=== PATIENT | male | born 1965 | race American Indian/Alaskan Native ===

== ENCOUNTER 2017-04-14 19:09 | Inpatient (IN) | payer OTHER ==
[2017-04-14 20:38] LABS: Anion Gap 18 mmol/L; BUN/Creatinine Ratio 14.11; Blood Urea Nitrogen 24 mg/dL (9-20); Calcium 8.9 mg/dL (8.4-10.2); Carbon Dioxide 25 mmol/L (22-30); Chloride 95.2 mmol/L (98-107); Glucose 125 mg/dL (75-100); Potassium 3.3 mmol/L (3.6-5.0); Sodium 135 mmol/L (137-145)
[2017-04-14 20:39] LABS: Partial Thromboplastin Time 28.3 Sec. (24.2-36.6)
[2017-04-14 20:47] LABS: Basophils % (Auto) 1.1 % (0.0-1.8); Eosinophils % (Auto) 2.7 % (0.0-4.3); Hemoglobin 14.5 gm/dl (11.8-15.2); Mean Corpuscular HGB Conc 33 % (32-34); Mean Corpuscular Hemoglobin 28 pg (28-32); Mean Corpuscular Volume 84 fl (84-94); Platelet Count 206 K/mm3 (140-440); Red Blood Count 5.24 M/mm3 (3.65-5.03); Red Cell Distribution Width 15.1 % (13.2-15.2)
--- NOTE | 2017-04-15 07:47 | Emergency Department Report ---
ED Chest Pain HPI - General Chief Complaint: Chest Pain Stated Complaint: CHEST PAIN, BACK PAIN, LT ARM PAIN Time Seen by Provider: 04/15/17 07:23 Source: patient, old records reviewed (none available) Mode of arrival: Ambulatory Limitations: No Limitations - History of Present Illness Initial Comments: 52-year-old male with a past medical history of renal insufficiency, hypertension, and CHF presents complaining of left-sided chest pain 2 days. Pain is intermittent and described as a "discomfort", no aggravating or alleviating factors. Pain radiates to the left arm and back. Denies nausea, vomiting, diaphoresis, shortness of breath, recent travel, calf tenderness/edema , history of PE/DVT. The patient denies tobacco use. Reports negative stress test 4 years ago as well as unknown but patient has not received a cardiac cath. He denies history of stent or bypass surgery. Patient takes 81 mg aspirin daily does not take cholesterol medication. Denies cough and fever. 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 Severity scale (0 -10): 0 - Related Data Allergies Allergy/AdvReac Type Severity Reaction Status Date / Time No Known Allergies Allergy Verified 04/14/17 19:36 Heart Score - HEART Score History: Slightly suspicious EKG: Non-specific Age: 45-65 Risk factors: > 3 risk factors or hx of atherosclerotic disease Troponin: < normal limit HEART Score: 4 ED Review of Systems ROS: Stated complaint: CHEST PAIN, BACK PAIN, LT ARM PAIN Other details as noted in HPI Comment: All other systems reviewed and negative Other: Constitutional: No fevers chills Eyes: No eye pain visual changes ENT: No ear pain or throat pain Neck: Denies pain Respiratory: Denies cough wheezing shortness of breath Cardiovascular: Denies palpitations, syncope GI: Denies abdominal pain, nausea, vomiting, diarrhea : Denies dysuria Musculoskeletal: as per hpi Skin: Denies rash, lesions, erythema Neurologic: Denies headache, numbness, weakness Psychiatric: Denies suicidal ideation, hallucinations ED Past Medical Hx - Past Medical History Previous Medical History?: Yes Hx Hypertension: Yes Hx Congestive Heart Failure: Yes Hx Renal Disease: Yes (renal insuf) - Surgical History Past Surgical History?: No - Social History Smoking Status: Never Smoker Substance Use Type: None ED Physical Exam - General Limitations: No Limitations - Other Other exam information: General: No limitations, patient is alert in no acute distress Head exam: Atraumatic, normocephalic Eyes exam: Normal appearance ENT: Moist mucous membrane, normal oropharynx Neck exam: Normal inspection, full range of motion, no meningismus nontender Respiratory exam: Clear to auscultation bilateral, no wheezes, rales, crackles Cardiovascular: Normal rate and rhythm, normal heart sounds. Chest wall nontender Abdomen: Soft, nondistended, and nontender, with normal bowel sounds, no rebound, or guarding Extremity: Full range of motion normal inspection no deformity, no calf tenderness or edema Back: Normal Inspection, full range of motion, no tenderness Neurologic: Alert, oriented x3, cranial nerves intact, no motor or sensory deficit Psychiatric: normal affect, normal mood Skin: Warm, dry, intact ED Course Vital Signs 04/14/17 04/14/17 04/15/17 19:21 19:36 06:03 Temperature 98.9 F 98.9 F Pulse Rate 78 78 60 Respiratory 18 18 18 Rate Blood Pressure 173/106 173/106 O2 Sat by Pulse 98 98 Oximetry 04/15/17 04/15/17 06:06 07:01 Temperature Pulse Rate 56 L 57 L Respiratory 12 14 Rate Blood Pressure 139/73 O2 Sat by Pulse 100 Oximetry ED Medical Decision Making - Lab Data Result diagrams: 04/14/17 19:53 04/14/17 19:53 Lab Results 04/14/17 04/14/17 04/14/17 Range/Units 19:53 19:53 19:53 WBC 5.0 (4.5-11.0) K/mm3 RBC 5.24 H (3.65-5.03) M/mm3 Hgb 14.5 (11.8-15.2) gm/dl Hct 44.0 (35.5-45.6) % MCV 84 (84-94) fl MCH 28 (28-32) pg MCHC 33 (32-34) % RDW 15.1 (13.2-15.2) % Plt Count 206 (140-440) K/mm3 Lymph % (Auto) 35.5 H (13.4-35.0) % [place] % (Auto) 10.2 H (0.0-7.3) % Eos % (Auto) 2.7 (0.0-4.3) % Baso % (Auto) 1.1 (0.0-1.8) % Lymph # 1.8 (1.2-5.4) K/mm3 [place] # 0.5 (0.0-0.8) K/mm3 Eos # 0.1 (0.0-0.4) K/mm3 Baso # 0.1 (0.0-0.1) K/mm3 Seg Neutrophils % 50.5 (40.0-70.0) % Seg Neutrophils # 2.5 (1.8-7.7) K/mm3 PT 13.1 (12.2-14.9) Sec. INR 1.00 (0.87-1.13) APTT 28.3 (24.2-36.6) Sec. Sodium 135 L (137-145) mmol/L Potassium 3.3 L (3.6-5.0) mmol/L Chloride 95.2 L (98-107) mmol/L Carbon Dioxide 25 (22-30) mmol/L Anion Gap 18 mmol/L BUN 24 H (9-20) mg/dL Creatinine 1.7 H (0.8-1.5) mg/dL Estimated GFR 52 ml/min BUN/Creatinine Ratio 14.11 % Glucose 125 H (75-100) mg/dL Calcium 8.9 (8.4-10.2) mg/dL Troponin T < 0.010 (0.00-0.029) ng/mL 04/14/17 Range/Units 23:14 WBC (4.5-11.0) K/mm3 RBC (3.65-5.03) M/mm3 Hgb (11.8-15.2) gm/dl Hct (35.5-45.6) % MCV (84-94) fl MCH (28-32) pg MCHC (32-34) % RDW (13.2-15.2) % Plt Count (140-440) K/mm3 Lymph % (Auto) (13.4-35.0) % [place] % (Auto) (0.0-7.3) % Eos % (Auto) (0.0-4.3) % Baso % (Auto) (0.0-1.8) % Lymph # (1.2-5.4) K/mm3 [place] # (0.0-0.8) K/mm3 Eos # (0.0-0.4) K/mm3 Baso # (0.0-0.1) K/mm3 Seg Neutrophils % (40.0-70.0) % Seg Neutrophils # (1.8-7.7) K/mm3 PT (12.2-14.9) Sec. INR (0.87-1.13) APTT (24.2-36.6) Sec. Sodium (137-145) mmol/L Potassium (3.6-5.0) mmol/L Chloride (98-107) mmol/L Carbon Dioxide (22-30) mmol/L Anion Gap mmol/L BUN (9-20) mg/dL Creatinine (0.8-1.5) mg/dL Estimated GFR ml/min BUN/Creatinine Ratio % Glucose (75-100) mg/dL Calcium (8.4-10.2) mg/dL Troponin T < 0.010 (0.00-0.029) ng/mL - EKG Data -: EKG Interpreted by Me (nsr 70, nonspecific t wave abnl, prolonged qt, 1st av block) - EKG Data When compared to previous EKG there are: previous EKG unavailable 04/15/17 08:04 repeat ekg no change - Radiology Data Radiology results: image reviewed (cxr: naf) - Medical Decision Making cp: declined meds, enzymes negative 2, EKG without STEMI Mag pending (prolong qt). asa ordered Plan to admit for further cardiac evaluation as been ordered. Hypertension: resolved without medication Hypokalemia: Po Kcl 20 meq given - Differential Diagnosis HI, costochondritis, atypical pain, unstable angina Critical Care Time: No Critical care attestation.: If time is entered above; I have spent that time in minutes in the direct care of this critically ill patient, excluding procedure time. ED Disposition Clinical Impression: Chest pain, HTN (hypertension), Obesity, History of CHF (congestive heart failure), Renal insufficiency Disposition: OP ADMIT IP TO THIS HOSP Is pt being admited?: Yes Does the pt Need Aspirin: Yes Condition: Stable Time of Disposition: 07:57 ([place]/hosp)
[2017-04-15] MEDS ORDERED: ASPIRIN PO ONE (07:58)
[2017-04-15] MEDS ORDERED: K-DUR PO ONE (08:01)
--- NOTE | 2017-04-15 08:18 | XRay Report ---
AP CHEST: HISTORY: chest pain Heart size remains borderline which is unchanged since 11/20/12. Normal pulmonary vascularity. The lungs are clear. Normal bony structures. IMPRESSION: Borderline heart size. Lungs clear. No acute process noted.
--- NOTE | 2017-04-15 09:27 | Admit Criteria Form ---
Admission Criteria Documentation: CARDIOLOGY GRG Clinical Indications for Admission to Inpatient Care ([place]/check or initial the applicable condition/criteria) Hospital admission is needed for appropriate care of the patient because of ANY ONE of the following: [ ] I. Hemodynamic instability as indicated by ALL of the following (1)(2)(3) (4)(5)(6)(7)(8)(9)(10) [ ]a) Vital sign abnormality not readily corrected by appropriate treatment with 12-24 hours for ANY ONE: [ ]i) Hypotension that persists despite appropriate treatment (eg, volume repletion) [ ]ii) Tachycardiathat persists despite appropriate tx ( e.g., analgesia, fluids, sedation as indicated [ ]iii) Orthostatic vital sign changes that persists despite appropriate treatment (eg, volume repletion) [ ]b) Vital sign abnormailty that is severe indicated by ANY ONE of the following: [ ]i) Inadequate perfusion indicated by ANY ONE of the following: [ ] 1) Lactic acidosis (> 2 mmol/L) [ ] 2) New abnormal capillary refill (> 3 seconds) [ ] 3) Reduced urine output [ ] 4) New altered mental status [ ] 5) Myocardial Ischemia [ ] 6) Other metabolic acidosis (arterial pH <7.35 ) not otherwise explained. [ ]ii) Mean arterial pressure[A] less than 60 mm Hg [ ]iii) Mean arterial pressure[A] less than 70 mm Hg after 30 minutes of appropriate treatment (eg, fluid resuscitation) [ ]iv) Sustained heart rate greater than 120 beats per minute in adult or child 6 years or older[B] [ ]v) IV inotropic or vasopressor medication required to maintain adequate blood pressure or perfusion [ ] II. Severe heart failure as indicated by ANY ONE of the following(17)(18) [ ]a) Respiratory distress [ ]b) Hypotension [ ]c) Debilitating anasarca refractory to therapy (eg, tissue breakdown with infection)[C](19) [ ]d) Cardiac arrhythmias of immediate concern [ ]e) Myocardial ischemia [ ] III. Cardiac arrhythmias or findings of immediate concern indicated by ANY ONE of the following (21)(22): [ ] a) Heart rhythms that are inherently dangerous or unstable indicated by ANY ONE of the following (23)(24)(25): [ ] i) Resuscitated ventricular fibrillation or cardiac arrest [ ] ii) Ventricular escape rhythm [ ] iii) Sustained ventricular tachycardia (30 seconds or more of ventricular rhythm at greater than 100 beats per minute) [ ] iv) Nonsustained ventricular tachycardia and ANY ONE of the following: [ ] 1) Suspected cardiac ischemia as cause or consequence of ventricular tachycardia [ ] 2) Acute myocarditis [ ] b) Unstable cardiac conduction defects indicated by ANY ONE of the following(25)(26)(27) [ ] i) Type II second-degree atrioventricular block [ ]ii) Third-degree atrioventricular block [ ]iii) New-onset left bundle branch block with suspected myocardial ischemia [ ]c) Any heart rhythm and ANY ONE of the following (23)(24)(28)(29) (30) [ ] i) Continuous long-term ECG monitoring needed (e.g., initiation of drug requiring monitoring for more than 24 hours) [ ] ii) Patient has automatic implanted cardioverter defibrillator that is repeatedly firing, malfunctioning, or in need of immediate adjustment of settings beyond the scope of ambulatory or observation care [ ]d) Heart rhythms of concern due to ANY ONE of the following: [ ] i) Hypotension [ ] ii) Respiratory distress [ ] iii) Association with other significant symptoms (e.g., bradycardia with syncope or ongoing dizziness, supraventricular tachycardia with chest pain (28)(29)(31) [ ] IV. Monitoring for cardiac contusion beyond the scope of observation care needed [A](32)(33)(34) [ ] V. Surgical or device complication (e.g., valve replacement complication , ICD disfunction or pacemaker dysfunction) (49)(50)(51)(52)(53)(54) [ ] . Inpatient palliative care needed. [F](51)(52) Also use Inpatient Palliative Care Criteria [ ] VII. Nonbacterial thrombotic (marantic) endocarditis(43)(44)(55)(56)(57) [X ] VIII. Cardiology condition, symptom, or finding for which emergency and observation care has failed or are not considered appropriate. [ ] IX. Acute valvular disease requiring inpatient as indicated by ANY ONE of the following (40)(41) [ ]a) Acute valvular regurgitation (42) [ ]b) Noninfectious valvulitis (43)(44) [ ]c) Obstructive valve thrombosis (45)(46) [ ]d) Paravalvular leak(47)(48) [ ]e) Other significant valvular disorder remaining after emergency or observation level of care (as appropriate) [ ]X. Pericardial disease requiring inpatient treatment as indicated by ANY ONE of the following (35)(36)(37)(38) [ ]a) Suspected tamponade [ ]b) Hemopericardium [ ]c) Other significant pericardial disorder remaining after emergency or observation level of care (as appropriate)(39) [ ] XI. Cardiac ischemia beyond scope of emergency and observation care. [ ] XII. Cyanotic heart disease requiring inpatient care as indicated by 1 or more of the following(58)(59)(60): [ ]a) Acute onset of hypoxemia [ ]b) Exacerbation [ ] XIII. Hypertension requiring inpatient treatment as indicated by ANYONE of the following(11)(12)(13)(14): [ ]a) Severe hypertension (SBP greater than 180 mm Hg or DBP greater than 110 mm Hg, or greater than the 95th percentile for age, gender, and height in pediatric patients) that cannot be controlled (eg, to SBP less than 160 mm Hg and DBP less than 100 mm Hg) by emergency department or observation care treatment(15) [ ]b) Acute end organ damage secondary to hypertension (SBP greater than 140 mm Hg or DBP greater than 90 mm Hg) as indicated by ANYONE of the following: [ ] i) Hypertensive encephalopathy (eg, Altered mental status)(16) [ ] ii) Cerebral infarction [ ] iii) Intracranial hemorrhage [ ] iv) Myocardial ischemia or infarction [ ] v) Heart failure (eg, pulmonary edema) [ ] vi) Aortic dissection [ ] vii) Increased creatinine (new) with reduction of more than 50% in estimated glomerular filtration rate from baseline [ ] viii) Papilledema [ ] ix) Retinal hemorrhage [ ] x) Microangiopathic hemolytic anemia [ ] xi) Seizure [ ] xii) Other significant finding secondary to hypertension [ ] XIV. Complications of transplanted heart indicated by ANY ONE of the following(61): [ ]a) Acute graft rejection requiring inpatient management (eg, intravenous imunosuppression)(62)(63) [ ]b) Acute graft heart failure indicated by ANY ONE of the following(64): [ ] i) Hemodynamic instability [ ] ii) Cardiac arrhythmias of immediate concern [ ] iii) Pulmonary edema that is very severe (eg, mechanical ventilation needed, imminent or likely, need for 100% oxygen to keep oxygen saturation above 90%) [ ] iv) Pulmonary edema that is persistent as indicated by ALL of the following: [ ] 1) New need for oxygen therapy to keep oxygen saturation above 90 % (or increased FiO2 need from baseline) [ ] 2) Has not improved sufficiently with emergency department or observation care IV diuretics or other heart failure treatments[E]. [ ] iv) Altered mental status that is severe or persistent [ ] iv) Increased creatinine (new on laboratory test) with reduction of more than 50% in estimated glomerular filtration rate from baseline [ ] iv) Progressively (ongoing) rising creatinine (known from past laboratory test) with reduction of more than 25% in estimated glomerular filtration rate from baseline [ ] iv) Acute renal failure [ ] iv) Acute peripheral ischemia (eg, examination shows pulseless, cool, mottled, or cyanotic extremity) [ ] iv) Pulmonary artery catheter monitoring needed [ ] iv) Other sign or symptom of heart failure requiring inpatient treatment (ie, too severe or not responsive to outpatient and observation care treatment) [ ]c) Infection requiring inpatient management (eg, Hemodynamic instability, need for intravenous antimicrobial treatment)(66)(67)(68)(69)(70) [ ]d) Cardiac allograft vasculopathy requiring inpatient management (eg evidence of cardiacischemia)(71) [ ]e) Other complication of transplanted heart (eg, stroke, severe pulmonary hypertension, severe valvular dysfunction) requiring inpatient management(72) The original [employer] content created by [employer] has been revised. The portions of the content which have been revised are identified through the use of italic text or in bold, and [facility] has neither reviewed nor approved the modified material. All other unmodified content is copyright [facility]. Please see references footnoted in the original [facility] edition 2017 Admission Criteria Met: Yes
[2017-04-15] MEDS ORDERED: NON-FORMULARY (Hydralazine Hcl [Apresoline Tab] 50 MG) PO SCH (10:00)
[2017-04-15] MEDS ORDERED: DULCOLAX PR PRN (10:00)
[2017-04-15] MEDS ORDERED: TYLENOL PO PRN (10:30)
[2017-04-15] MEDS ORDERED: MILK OF MAGNESIA PO PRN (10:30)
[2017-04-15] MEDS ORDERED: ZOFRAN IV PRN (10:30)
[2017-04-15] MEDS ORDERED: APRESOLINE IV PRN (10:30)
[2017-04-15] MEDS: ASPIRIN PO SCH (10:49)
[2017-04-15] MEDS ORDERED: NITROSTAT SL PRN (11:00)
[2017-04-15] MEDS ORDERED: LOVENOX SUB-Q ONE (11:01)
[2017-04-15] MEDS: LOVENOX SUB-Q SCH (11:02)
[2017-04-15] MEDS: LOPRESSOR PO SCH ×2 (11:04→22:09)
[2017-04-15] MEDS: NORVASC PO SCH (11:04)
[2017-04-15] MEDS: APRESOLINE PO SCH ×2 (11:04→22:09)
[2017-04-15] MEDS: HCTZ PO SCH (11:04)
--- NOTE | 2017-04-15 12:05 | History and Physical Report ---
<MELISA SCRUGGS - Last Filed: 04/15/17 18:24> History of Present Illness Date of examination: 04/15/19 Date of admission: 04/15/17 08:54 Chief complaint: Chest pain History of present illness: Patient is a 52 years old black male who presents to emergency department for complaining of left sided chest pain. He states that the pain began two-three days ago intermittent left side chest pain, but his pain increase in intensity this morning. The pain was located over to his left side of his chest. He noticed the pain this morning as he was getting out of bed and while the patient was walking to the bath room. He describes the quality as discomfort without radiation to the shoulder, arm, back, or jaw. The pain lasted approximately around 1-2 seconds minutes. The patient did not take anything to relief the pain prior to emergency department. No alleviating or aggravating factors. The painful episodes did not increase in intensity or severity during this time. The patient denies chest pain at present time. He denies shortness of breath, sweating, heart palpitations, lightheadedness, dizziness, nausea and vomiting during these episodes of pain. Patient do not have prior chest pain or cardiac work up. Past History Past Medical History: heart failure, hypertension, other (renal ) Past Surgical History: cholecystectomy Social history: denies: smoking, alcohol abuse Family history: CAD, hypertension Medications and Allergies Allergies Allergy/AdvReac Type Severity Reaction Status Date / Time No Known Allergies Allergy Verified 04/14/17 19:36 Home Medications Medication Instructions Recorded Confirmed Last Taken Type Hydralazine HCl [Apresoline TAB] 50 mg PO BID 04/15/17 04/15/17 04/14/17 History Hydrochlorothiazide [HCTZ] 25 mg PO QDAY 04/15/17 04/15/17 04/14/17 History Metoprolol [Lopressor TAB] 50 mg PO BID 04/15/17 04/15/17 04/14/17 History amLODIPine [Norvasc] 10 mg PO DAILY 04/15/17 04/15/17 04/14/17 History cloNIDine [Catapres] 0.2 mg PO TID 04/15/17 04/15/17 04/14/17 History Active Meds: Active Medications Acetaminophen (Tylenol) 650 mg PO Q4H PRN PRN Reason: Pain MILD(1-3)/Fever >100.5/BOLIVAR Amlodipine Besylate (Norvasc) 10 mg PO DAILY [facility] Last Admin: 04/15/17 11:04 Dose: 10 mg Aspirin (Aspirin) 325 mg PO QDAY [facility] Last Admin: 04/15/17 10:49 Dose: Not Given Bisacodyl (Dulcolax) 10 mg [place] QDAY PRN PRN Reason: Constipation unrelieved by MOM Clonidine HCl (Catapres) 0.2 mg PO TID [facility] Enoxaparin Sodium (Lovenox) 40 mg SUB-Q DAILY [facility] Last Admin: 04/15/17 11:02 Dose: 40 mg Hydralazine HCl (Apresoline) 20 mg IV Q4H PRN PRN Reason: Blood Pressure Hydralazine HCl (Apresoline) 50 mg PO BID [facility] Last Admin: 04/15/17 11:04 Dose: 50 mg Hydrochlorothiazide (Hctz) 25 mg PO QDAY [facility] Last Admin: 04/15/17 11:04 Dose: 25 mg Magnesium Hydroxide (Milk Of Magnesia) 30 ml PO Q4H PRN PRN Reason: Constipation Metoprolol Tartrate (Lopressor) 50 mg PO BID [facility] Last Admin: 04/15/17 11:04 Dose: 50 mg Nitroglycerin (Nitrostat) 0.4 mg SL .Q5MIN PRN PRN Reason: Chest Pain Ondansetron HCl (Zofran) 4 mg IV Q8H PRN PRN Reason: Nausea And Vomiting Review of Systems Constitutional: no weight loss, no weight gain, no fever, no chills Ears, nose, mouth and throat: no ear discharge, no tinnitis, no decreased hearing, no nose pain, no nasal congestion Cardiovascular: chest pain, dyspnea on exertion, no orthopnea, no palpitations, no rapid/irregular heart beat, no edema Respiratory: no cough with sputum, no excessive sputum, no shortness of breath Gastrointestinal: no diarrhea, no constipation, no change in bowel habits Genitourinary Male: no hematuria, no flank pain, no discharge, no urinary frequency, no urinary hesitancy, no nocturia Rectal: no pain Musculoskeletal: no neck pain, no shooting arm pain, no low back pain Integumentary: no redness, no sores, no jaundice Neurological: no transient paralysis, no paralysis, no weakness, no parathesias Psychiatric: no memory loss, no change in sleep habits Endocrine: no cold intolerance, no polyphagia, no excessive thirst Hematologic/Lymphatic: no easy bruising, no easy bleeding Allergic/Immunologic: no urticaria, no allergic rhinitis Exam - Constitutional Vitals: Temp Pulse Resp BP Pulse Ox 98.9 F 85 16 150/112 98 04/14/17 19:36 04/15/17 11:04 04/15/17 11:01 04/15/17 11:04 04/15/17 11:01 General appearance: Present: no acute distress - EENT Eyes: Present: PERRL ENT: hearing intact - Neck Neck: Present: supple - Respiratory Respiratory effort: normal Respiratory: bilateral: CTA - Cardiovascular Heart rate: 85 Rhythm: regular Heart Sounds: Present: S1 & S2 - Extremities Extremities: no ischemia - Abdominal General gastrointestinal: Present: soft, non-tender Male genitourinary: Present: deferred - Rectal Rectal Exam: deferred - Integumentary Integumentary: Present: clear, warm, dry - Musculoskeletal Musculoskeletal: strength equal bilaterally, generalized weakness - Psychiatric Psychiatric: appropriate mood/affect - Neurologic Neurologic: CNII-XII intact - Allied Health Allied health notes reviewed: nursing Results - Labs CBC & Chem 7: 04/14/17 19:53 04/14/17 19:53 Labs: Laboratory Last Values WBC 5.0 K/mm3 (4.5-11.0) 04/14/17 19:53 RBC 5.24 M/mm3 (3.65-5.03) H 04/14/17 19:53 Hgb 14.5 gm/dl (11.8-15.2) 04/14/17 19:53 Hct 44.0 % (35.5-45.6) 04/14/17 19:53 MCV 84 fl (84-94) 04/14/17 19:53 MCH 28 pg (28-32) 04/14/17 19:53 MCHC 33 % (32-34) 04/14/17 19:53 RDW 15.1 % (13.2-15.2) 04/14/17 19:53 Plt Count 206 K/mm3 (140-440) 04/14/17 19:53 Lymph % (Auto) 35.5 % (13.4-35.0) H 04/14/17 19:53 [place] % (Auto) 10.2 % (0.0-7.3) H 04/14/17 19:53 Eos % (Auto) 2.7 % (0.0-4.3) 04/14/17 19:53 Baso % (Auto) 1.1 % (0.0-1.8) 04/14/17 19:53 Lymph # 1.8 K/mm3 (1.2-5.4) 04/14/17 19:53 [place] # 0.5 K/mm3 (0.0-0.8) 04/14/17 19:53 Eos # 0.1 K/mm3 (0.0-0.4) 04/14/17 19:53 Baso # 0.1 K/mm3 (0.0-0.1) 04/14/17 19:53 Seg Neutrophils % 50.5 % (40.0-70.0) 04/14/17 19:53 Seg Neutrophils # 2.5 K/mm3 (1.8-7.7) 04/14/17 19:53 PT 13.1 Sec. (12.2-14.9) 04/14/17 19:53 INR 1.00 (0.87-1.13) 04/14/17 19:53 APTT 28.3 Sec. (24.2-36.6) 04/14/17 19:53 Sodium 135 mmol/L (137-145) L 04/14/17 19:53 Potassium 3.3 mmol/L (3.6-5.0) L 04/14/17 19:53 Chloride 95.2 mmol/L (98-107) L 04/14/17 19:53 Carbon Dioxide 25 mmol/L (22-30) 04/14/17 19:53 Anion Gap 18 mmol/L 04/14/17 19:53 BUN 24 mg/dL (9-20) H 04/14/17 19:53 Creatinine 1.7 mg/dL (0.8-1.5) H 04/14/17 19:53 Estimated GFR 52 ml/min 04/14/17 19:53 BUN/Creatinine Ratio 14.11 % 04/14/17 19:53 Glucose 125 mg/dL (75-100) H 04/14/17 19:53 Calcium 8.9 mg/dL (8.4-10.2) 04/14/17 19:53 Magnesium 2.10 mg/dL (1.7-2.3) 04/15/17 08:41 Troponin T < 0.010 ng/mL (0.00-0.029) 04/15/17 08:41 Assessment and Plan Assessment and plan: Chest Pain We will admit to telemetry floor. EKG Norm sinus rhythm with HR 70, nonspecific t wave abnl, prolonged qt, 1st av block. Negative cardiac enzyme X3 Start on aspirin Nitroglycerin when necessary Morphine ordered for pain Nothing by mouth after midnight Stress test cancelled due to patient overnight Cardiology evaluation Hypertension emergency Resume antihypertensive pills IV hydralazine for SBP>106 Closely monitor blood pressure Congestive heart failure Echocardiogram ordered IV Lasix hold due to renal insufficiency, continue on beta blockers and HARVEY inhibitor inhibitor Sodium/cardiac diet, fluid restriction 1200 mL in 24 hours Closely monitor electrolytes Cardiology evaluation Hypokalemia Replaced We will repeat BMB Closely monitor electrolytes Hyponatremia most like dilution of fluid due to renal insufficiency and CHF. Closely monitor BMP Acute on chronic Renal insufficiency we will get Bilateral renal US Nephrology consult Hyperlipidemia Resume home antilipid agents. DVT prophylaxis Heparin Advance Directives: Yes VTE prophylaxis?: Chemical Contraindication Mechanical VTE Prophylaxis: Treatment Not Indicated Plan of care discussed with patient/family: Yes <LUKE WILLETT E - Last Filed: 04/15/17 18:51> History of Present Illness Date of admission: 04/15/17 08:54 Medications and Allergies Active Meds: Active Medications Acetaminophen (Tylenol) 650 mg PO Q4H PRN PRN Reason: Pain MILD(1-3)/Fever >100.5/BOLIVAR Amlodipine Besylate (Norvasc) 10 mg PO DAILY [facility] Last Admin: 04/15/17 11:04 Dose: 10 mg Aspirin (Aspirin) 325 mg PO QDAY [facility] Last Admin: 04/15/17 10:49 Dose: Not Given Bisacodyl (Dulcolax) 10 mg [place] QDAY PRN PRN Reason: Constipation unrelieved by MOM Clonidine HCl (Catapres) 0.2 mg PO TID [facility] Last Admin: 04/15/17 14:38 Dose: 0.2 mg Enoxaparin Sodium (Lovenox) 40 mg SUB-Q DAILY [facility] Last Admin: 04/15/17 11:02 Dose: 40 mg Hydralazine HCl (Apresoline) 20 mg IV Q4H PRN PRN Reason: Blood Pressure Hydralazine HCl (Apresoline) 50 mg PO BID [facility] Last Admin: 04/15/17 11:04 Dose: 50 mg Hydrochlorothiazide (Hctz) 25 mg PO QDAY [facility] Last Admin: 04/15/17 11:04 Dose: 25 mg Influenza Virus Vaccine Quadrival (Fluarix Quad [id number](36 Mos+)) 0.5 ml IM .ONCE ONE Stop: 04/16/17 10:01 Magnesium Hydroxide (Milk Of Magnesia) 30 ml PO Q4H PRN PRN Reason: Constipation Metoprolol Tartrate (Lopressor) 50 mg PO BID [facility] Last Admin: 04/15/17 11:04 Dose: 50 mg Nitroglycerin (Nitrostat) 0.4 mg SL .Q5MIN PRN PRN Reason: Chest Pain Ondansetron HCl (Zofran) 4 mg IV Q8H PRN PRN Reason: Nausea And Vomiting Pneumococcal Polyvalent Vaccine (Pneumovax 23) 0.5 ml IM .ONCE ONE Stop: 04/16/17 10:01 Exam - Constitutional Vitals: Temp Pulse Resp BP Pulse Ox 98.9 F 98 H 19 135/87 98 04/14/17 19:36 04/15/17 17:31 04/15/17 16:00 04/15/17 16:00 04/15/17 16:00 Results - Labs CBC & Chem 7: 04/14/17 19:53 04/14/17 19:53 Labs: Laboratory Last Values WBC 5.0 K/mm3 (4.5-11.0) 04/14/17 19:53 RBC 5.24 M/mm3 (3.65-5.03) H 04/14/17 19:53 Hgb 14.5 gm/dl (11.8-15.2) 04/14/17 19:53 Hct 44.0 % (35.5-45.6) 04/14/17 19:53 MCV 84 fl (84-94) 04/14/17 19:53 MCH 28 pg (28-32) 04/14/17 19:53 MCHC 33 % (32-34) 04/14/17 19:53 RDW 15.1 % (13.2-15.2) 04/14/17 19:53 Plt Count 206 K/mm3 (140-440) 04/14/17 19:53 Lymph % (Auto) 35.5 % (13.4-35.0) H 04/14/17 19:53 [place] % (Auto) 10.2 % (0.0-7.3) H 04/14/17 19:53 Eos % (Auto) 2.7 % (0.0-4.3) 04/14/17 19:53 Baso % (Auto) 1.1 % (0.0-1.8) 04/14/17 19:53 Lymph # 1.8 K/mm3 (1.2-5.4) 04/14/17 19:53 [place] # 0.5 K/mm3 (0.0-0.8) 04/14/17 19:53 Eos # 0.1 K/mm3 (0.0-0.4) 04/14/17 19:53 Baso # 0.1 K/mm3 (0.0-0.1) 04/14/17 19:53 Seg Neutrophils % 50.5 % (40.0-70.0) 04/14/17 19:53 Seg Neutrophils # 2.5 K/mm3 (1.8-7.7) 04/14/17 19:53 PT 13.1 Sec. (12.2-14.9) 04/14/17 19:53 INR 1.00 (0.87-1.13) 04/14/17 19:53 APTT 28.3 Sec. (24.2-36.6) 04/14/17 19:53 Sodium 135 mmol/L (137-145) L 04/14/17 19:53 Potassium 3.3 mmol/L (3.6-5.0) L 04/14/17 19:53 Chloride 95.2 mmol/L (98-107) L 04/14/17 19:53 Carbon Dioxide 25 mmol/L (22-30) 04/14/17 19:53 Anion Gap 18 mmol/L 04/14/17 19:53 BUN 24 mg/dL (9-20) H 04/14/17 19:53 Creatinine 1.7 mg/dL (0.8-1.5) H 04/14/17 19:53 Estimated GFR 52 ml/min 04/14/17 19:53 BUN/Creatinine Ratio 14.11 % 04/14/17 19:53 Glucose 125 mg/dL (75-100) H 04/14/17 19:53 Calcium 8.9 mg/dL (8.4-10.2) 04/14/17 19:53 Magnesium 2.10 mg/dL (1.7-2.3) 04/15/17 08:41 Troponin T < 0.010 ng/mL (0.00-0.029) 04/15/17 08:41
--- NOTE | 2017-04-15 13:39 | Consultation ---
History of Present Illness Consult date: 04/15/17 Consult reason: chest pain History of present illness: This is a 52yr old man that reports a history of Hypertension and chronic renal failure who follows with Dr Kincaid. He presented to the ED with complaints of upper back pain described as cramps. While in the ED, he also complained of chest pain thus this cardiac consultation. A 12 lead ECG shows a sinus rhythm. NO acute ischemic changes. Initial labs shows hypokalemia with a potassium of 3.3 and a creatinine of 1.7. Cycled troponin T were normal. Past History Past Medical History: heart failure, hypertension, other (renal ) Past Surgical History: cholecystectomy Social history: denies: smoking, alcohol abuse Family history: CAD, hypertension Medications and Allergies Allergies Allergy/AdvReac Type Severity Reaction Status Date / Time No Known Allergies Allergy Verified 04/14/17 19:36 Home Medications Medication Instructions Recorded Confirmed Last Taken Type Hydralazine HCl [Apresoline TAB] 50 mg PO BID 04/15/17 04/15/17 04/14/17 History Hydrochlorothiazide [HCTZ] 25 mg PO QDAY 04/15/17 04/15/17 04/14/17 History Metoprolol [Lopressor TAB] 50 mg PO BID 04/15/17 04/15/17 04/14/17 History amLODIPine [Norvasc] 10 mg PO DAILY 04/15/17 04/15/17 04/14/17 History cloNIDine [Catapres] 0.2 mg PO TID 04/15/17 04/15/17 04/14/17 History Active Meds: Active Medications Acetaminophen (Tylenol) 650 mg PO Q4H PRN PRN Reason: Pain MILD(1-3)/Fever >100.5/BOLIVAR Amlodipine Besylate (Norvasc) 10 mg PO DAILY [facility] Last Admin: 04/15/17 11:04 Dose: 10 mg Aspirin (Aspirin) 325 mg PO QDAY [facility] Last Admin: 04/15/17 10:49 Dose: Not Given Bisacodyl (Dulcolax) 10 mg [place] QDAY PRN PRN Reason: Constipation unrelieved by MOM Clonidine HCl (Catapres) 0.2 mg PO TID [facility] Enoxaparin Sodium (Lovenox) 40 mg SUB-Q DAILY [facility] Last Admin: 04/15/17 11:02 Dose: 40 mg Hydralazine HCl (Apresoline) 20 mg IV Q4H PRN PRN Reason: Blood Pressure Hydralazine HCl (Apresoline) 50 mg PO BID [facility] Last Admin: 04/15/17 11:04 Dose: 50 mg Hydrochlorothiazide (Hctz) 25 mg PO QDAY [facility] Last Admin: 04/15/17 11:04 Dose: 25 mg Influenza Virus Vaccine Quadrival (Fluarix Quad [id number](36 Mos+)) 0.5 ml IM .ONCE ONE Stop: 04/16/17 10:01 Magnesium Hydroxide (Milk Of Magnesia) 30 ml PO Q4H PRN PRN Reason: Constipation Metoprolol Tartrate (Lopressor) 50 mg PO BID [facility] Last Admin: 04/15/17 11:04 Dose: 50 mg Nitroglycerin (Nitrostat) 0.4 mg SL .Q5MIN PRN PRN Reason: Chest Pain Ondansetron HCl (Zofran) 4 mg IV Q8H PRN PRN Reason: Nausea And Vomiting Pneumococcal Polyvalent Vaccine (Pneumovax 23) 0.5 ml IM .ONCE ONE Stop: 04/16/17 10:01 Physical Examination Vital Signs Temp Pulse Resp BP Pulse Ox 98.9 F 78 18 173/106 98 04/14/17 19:21 04/14/17 19:21 04/14/17 19:21 04/14/17 19:21 04/14/17 19:21 General appearance: no acute distress Cardiac: Positive: Reg Rate and Rhythm Results 04/14/17 19:53 04/14/17 19:53 Assessment and Plan Back pain Hypokalemia Atypical chest pain Hypertension -uncontrolled Chronic renal failure
[2017-04-15] MEDS: CATAPRES PO SCH ×2 (14:38→21:00)
--- NOTE | 2017-04-15 18:04 | Consultation ---
History of Present Illness - Reason for Consult Consult date: 04/15/17 acute renal failure - History of Present Illness Mr. Rebolledo is a 52yo with hx of CKD and a long standing history of hypertension ( age 21 years) who presented to the ED with chest pain. He reports that he was in [facility] until appx 2 days ago when he began experiencing substernal chest "discomfort". He describes symptoms as a "flash of discomfort". He grades severity of pain 1/10. He denies SOB, diaphoresis, nausea, vomiting, palpitations. Past History Past Medical History: heart failure, hypertension, other (renal ) Past Surgical History: cholecystectomy Social history: denies: smoking, alcohol abuse Family history: CAD, hypertension Medications and Allergies Allergies Allergy/AdvReac Type Severity Reaction Status Date / Time No Known Allergies Allergy Verified 04/14/17 19:36 Home Medications Medication Instructions Recorded Confirmed Last Taken Type Hydralazine HCl [Apresoline TAB] 50 mg PO BID 04/15/17 04/15/17 04/14/17 History Hydrochlorothiazide [HCTZ] 25 mg PO QDAY 04/15/17 04/15/17 04/14/17 History Metoprolol [Lopressor TAB] 50 mg PO BID 04/15/17 04/15/17 04/14/17 History amLODIPine [Norvasc] 10 mg PO DAILY 04/15/17 04/15/17 04/14/17 History cloNIDine [Catapres] 0.2 mg PO TID 04/15/17 04/15/17 04/14/17 History Active Meds: Active Medications Acetaminophen (Tylenol) 650 mg PO Q4H PRN PRN Reason: Pain MILD(1-3)/Fever >100.5/BOLIVAR Amlodipine Besylate (Norvasc) 10 mg PO DAILY [facility] Last Admin: 04/15/17 11:04 Dose: 10 mg Aspirin (Aspirin) 325 mg PO QDAY [facility] Last Admin: 04/15/17 10:49 Dose: Not Given Bisacodyl (Dulcolax) 10 mg [place] QDAY PRN PRN Reason: Constipation unrelieved by MOM Clonidine HCl (Catapres) 0.2 mg PO TID [facility] Last Admin: 04/15/17 14:38 Dose: 0.2 mg Enoxaparin Sodium (Lovenox) 40 mg SUB-Q DAILY [facility] Last Admin: 04/15/17 11:02 Dose: 40 mg Hydralazine HCl (Apresoline) 20 mg IV Q4H PRN PRN Reason: Blood Pressure Hydralazine HCl (Apresoline) 50 mg PO BID [facility] Last Admin: 04/15/17 11:04 Dose: 50 mg Hydrochlorothiazide (Hctz) 25 mg PO QDAY [facility] Last Admin: 04/15/17 11:04 Dose: 25 mg Influenza Virus Vaccine Quadrival (Fluarix Quad [id number](36 Mos+)) 0.5 ml IM .ONCE ONE Stop: 04/16/17 10:01 Magnesium Hydroxide (Milk Of Magnesia) 30 ml PO Q4H PRN PRN Reason: Constipation Metoprolol Tartrate (Lopressor) 50 mg PO BID [facility] Last Admin: 04/15/17 11:04 Dose: 50 mg Nitroglycerin (Nitrostat) 0.4 mg SL .Q5MIN PRN PRN Reason: Chest Pain Ondansetron HCl (Zofran) 4 mg IV Q8H PRN PRN Reason: Nausea And Vomiting Pneumococcal Polyvalent Vaccine (Pneumovax 23) 0.5 ml IM .ONCE ONE Stop: 04/16/17 10:01 Review of Systems Constitutional: no fever, no chills, no sweats, no fatigue, no weakness, no malaise, no poor appetite Cardiovascular: chest pain, no lightheadedness, no shortness of breath, no dyspnea on exertion, no leg edema Respiratory: no cough, no shortness of breath, no dyspnea on exertion Gastrointestinal: no abdominal pain, no nausea, no vomiting, no diarrhea, no BRBPR, no melena Genitourinary Male: no dysuria, no nocturia Integumentary: no rash Neurological: no weakness Exam - Vital Signs Vital signs: Vital Signs Temp Pulse Resp BP Pulse Ox 98.9 F 78 18 173/106 98 04/14/17 19:21 04/14/17 19:21 04/14/17 19:21 04/14/17 19:21 04/14/17 19:21 - General Appearance General appearance: well-developed, well-nourished EENT: ATNC Respiratory: Clear to Ascultation Heart: regular, S1S2 Gastrointestinal: Present: normal, obese. Absent: tenderness, distended Integumentary: no rash Neurologic: alert and oriented x3 Musculoskeletal: Present: other (no edema) Psychiatric: mood/affect appropriate, cooperative Results - Lab Results 04/14/17 19:53 04/14/17 19:53 Most recent lab results Calcium 8.9 mg/dL (8.4-10.2) 04/14/17 19:53 Magnesium 2.10 mg/dL (1.7-2.3) 04/15/17 08:41 Assessment and Plan Impression: * Acute kidney injury vs probable underlying chronic kidney disease secondary to hypertensive nephrosclerosis * Chest pain * Accelerated hypertension * Hypokalemia Plan: * No acute indication for renal replacement therapy * Will review office records to establish baseline * Obtain additional work up as needed * Continue antiHTN medications - BP control improved * Cardiac work up in progress * Dose medications for renal function * Avoid potential nephrotoxins * Replete lytes prn * AM labs
[2017-04-16 06:12] LABS: Basophils % (Auto) 0.8 % (0.0-1.8); Eosinophils % (Auto) 3.5 % (0.0-4.3); Hemoglobin 14.4 gm/dl (11.8-15.2); Mean Corpuscular HGB Conc 32 % (32-34); Mean Corpuscular Hemoglobin 27 pg (28-32); Mean Corpuscular Volume 84 fl (84-94); Platelet Count 196 K/mm3 (140-440); Red Blood Count 5.37 M/mm3 (3.65-5.03); Red Cell Distribution Width 15.3 % (13.2-15.2); White Blood Count 4.7 K/mm3 (4.5-11.0)
[2017-04-16 06:29] LABS: Calcium 8.3 mg/dL (8.4-10.2); Chloride 100.1 mmol/L (98-107); Potassium 3.7 mmol/L (3.6-5.0)
[2017-04-16] MEDS: CATAPRES PO SCH ×2 (08:36→13:15)
[2017-04-16] MEDS ORDERED: DOBUTamine 100 MG in D5W 92 ML IV SCH (09:00)
[2017-04-16 09:07] VITALS: BP 151/88
--- NOTE | 2017-04-16 09:07 | Discharge Summary ---
Providers - Providers Date of Admission: 04/15/17 08:54 Attending physician: LUKE WILLETT MD 04/15/17 11:48 Consult to Physician [CONS] Routine Consulting Provider: KEILA BECK Reason For Exam: Chest pain Place consult to:: CARDIOLOGY Notified:: Y Was contact made?: Yes If yes, spoke with:: LIZZ Time called:: 12:00 04/15/17 15:59 Consult to Physician [CONS] Routine Consulting Provider: CALIN JOSE Reason For Exam: Renal insufficiency Place consult to:: natalie Notified:: ED unit secretary Primary care physician: CALIN JOSE Hospitalization Reason for admission: chest pain Condition: Stable Hospital course: Patient is a 52 years old black male who presents to emergency department for complaining of left sided chest pain. He states that the pain began two-three days ago intermittent left side chest pain, but his pain increase in intensity this morning. The pain was located over to his left side of his chest. He noticed the pain this morning as he was getting out of bed and while the patient was walking to the bath room. He describes the quality as discomfort without radiation to the shoulder, arm, back, or jaw. The pain lasted approximately around 1-2 seconds minutes. The patient did not take anything to relief the pain prior to emergency department. No alleviating or aggravating factors. The painful episodes did not increase in intensity or severity during this time. The patient denies chest pain at present time. He denies shortness of breath, sweating, heart palpitations, lightheadedness, dizziness, nausea and vomiting during these episodes of pain. Patient do not have prior chest pain or cardiac work up.STRESS TEST DONE AND NEGATIVE. CARDIOLOGY CLEARED FOR DISCHARGE. BP MEDS ADJUSTED WITH PROCARDIA ADDED. RENAL FUNCTION IMPROVED, WAS SEEN [place] [facility]PR[facility]. RECOMMEND FOLLOWING UP WITH CARDIOLOGY FOR ECHO REVIEW. ALSO WITH INTERMITTENT RENAL FOLLOW UP PER PCP Atypical Chest Pain-costochondritis BACK PAIN-CHRONIC Hypertension emergency Hypokalemia Hyponatremia Acute on chronic Renal insufficiency Hyperlipidemia Disposition: - TO HOME OR SELFCARE Time spent for discharge: 35 MINS Core Measure Documentation - Palliative Care Palliative Care/ Comfort Measures: Not Applicable - Core Measures Any of the following diagnoses?: none - VTE Discharge Requirements Deep Vein Thrombosis/Pulmonary Embolism Present on Admission: No Exam - Physical Exam Narrative exam: VITAL SIGNS: Reviewed. GENERAL: The patient appeared well nourished and normally developed. Vital signs as documented. HEAD: No signs of head trauma. EYES: Pupils are equal. Extraocular motions intact. EARS: Hearing grossly intact. MOUTH: Oropharynx is normal. NECK: No adenopathy, no JVD. CHEST: Chest with clear breath sounds bilaterally. No wheezes, rales, or rhonchi. CARDIAC: Regular rate and rhythm. S1 and S2, without murmurs, gallops, or rubs. VASCULAR: No Edema. Peripheral pulses normal and equal in all extremities. ABDOMEN: Soft, without detectable tenderness. No sign of distention. No rebound or guarding, and no masses palpated. Bowel Sounds normal. MUSCULOSKELETAL: Good range of motion of all major joints. Extremities without clubbing, cyanosis or edema. NEUROLOGIC EXAM: Alert and oriented x 3. No focal sensory or strength deficits. Speech normal. Follows commands. PSYCHIATRIC: Mood normal. SKIN: No rash or lesions. - Constitutional Vitals: Temp Pulse Resp BP Pulse Ox 98.6 F 78 18 138/80 99 04/16/17 06:35 04/16/17 06:35 04/16/17 06:35 04/16/17 06:35 04/16/17 06:35 Plan Activity: advance as tolerated, fall precautions Diet: low salt Special Instructions: record daily BP diary Follow up with: CALIN JOSE MD [Primary Care Provider] - 3-5 Days KEILA BECK MD [Staff Physician] - 7 Days Prescriptions: NIFEdipine XL [Procardia Xl] 30 mg PO QDAY 30 Days
[2017-04-16] MEDS ORDERED: PNEUMOVAX 23 IM ONE (10:00)
[2017-04-16] MEDS ORDERED: Fluarix Quad 2017-2018(36 MOS+) IM ONE (10:00)
--- NOTE | 2017-04-16 11:18 | Progress Note ---
Assessment and Plan Back pain Hypokalemia Atypical chest pain Normal DSE Normal LVEF Hypertension -uncontrolled Chronic renal failure Recommendations: BP control No further cardiac management needed Will sign off PLease call back if needed Subjective Date of service: 04/16/17 Principal diagnosis: Chest Pain Interval history: Patient underwent a DSE today without complications Objective Vital Signs Temp Pulse Resp BP Pulse Ox 04/16/17 08:00 98.0 F 58 L 18 151/88 98 04/16/17 06:35 98.6 F 78 18 138/80 99 04/16/17 04:45 98.5 F 66 20 135/82 98 04/15/17 20:47 98.4 F 74 18 143/75 99 04/15/17 17:31 98 H 04/15/17 16:00 72 19 135/87 98 04/15/17 15:31 73 21 161/103 97 04/15/17 15:00 72 18 156/102 99 04/15/17 14:38 78 150/90 04/15/17 14:31 73 13 161/103 98 04/15/17 14:00 73 14 161/103 97 04/15/17 13:31 74 17 151/88 97 04/15/17 13:00 71 15 151/88 98 04/15/17 12:00 76 19 150/93 99 - Physical Examination General: Appears Well HEENT: Positive: PERRL Neck: Positive: neck supple Cardiac: Positive: Reg Rate and Rhythm Lungs: Positive: Normal Exam Neuro: Positive: Grossly Intact - Labs and Meds CBC 04/16/17 Range/Units 05:35 WBC 4.7 (4.5-11.0) K/mm3 RBC 5.37 H (3.65-5.03) M/mm3 Hgb 14.4 (11.8-15.2) gm/dl Hct 45.0 (35.5-45.6) % Plt Count 196 (140-440) K/mm3 Lymph # 1.7 (1.2-5.4) K/mm3 [place] # 0.5 (0.0-0.8) K/mm3 Eos # 0.2 (0.0-0.4) K/mm3 Baso # 0.0 (0.0-0.1) K/mm3 Comprehensive Metabolic Panel 04/16/17 Range/Units 05:35 Sodium 140 (137-145) mmol/L Potassium 3.7 (3.6-5.0) mmol/L Chloride 100.1 (98-107) mmol/L Carbon Dioxide 27 (22-30) mmol/L BUN 24 H (9-20) mg/dL Creatinine 1.6 H (0.8-1.5) mg/dL Glucose 108 H (75-100) mg/dL Calcium 8.3 L (8.4-10.2) mg/dL
[2017-04-16] MEDS: ASPIRIN PO SCH (13:14)
[2017-04-16] MEDS: LOPRESSOR PO SCH (13:14)
[2017-04-16] MEDS: HCTZ PO SCH (13:14)
[2017-04-16] MEDS: APRESOLINE PO SCH (13:15)
[2017-04-16] MEDS: NORVASC PO SCH (13:15)
[2017-04-16] MEDS: LOVENOX SUB-Q SCH (13:16)
[2017-04-16] MEDS ORDERED: ATROPINE ONE (14:24)
== END 2017-04-16 14:44 | disposition home or self-care (01) | DRG 206 ==
LOC: ED 19:09 → 4A 04-15 08:54
PROVIDERS: ADMIT Internal Medicine; ATTEND Internal Medicine
PROC: 3E0234Z Introduction of Serum, Toxoid and Vaccine into Muscle, Percutaneous Approach (ICD-10-PCS; principal; 2017-04-15)
DX: M94.0 Chondrocostal junction syndrome [Tietze] (principal); I13.0 Hypertensive heart and chronic kidney disease with heart failure and stage 1 through stage 4 chronic kidney disease, or unspecified chronic kidney disease; I16.1 Hypertensive emergency; E87.1 Hypo-osmolality and hyponatremia; R07.9 Chest pain, unspecified; I50.9 Heart failure, unspecified; E66.9 Obesity, unspecified; E78.5 Hyperlipidemia, unspecified; E87.6 Hypokalemia; N18.9 Chronic kidney disease, unspecified; Z68.43 Body mass index [BMI] 50.0-59.9, adult; Z86.79 Personal history of other diseases of the circulatory system; Z82.49 Family history of ischemic heart disease and other diseases of the circulatory system; Z90.49 Acquired absence of other specified parts of digestive tract
CPT/HCPCS: 36415; 71010; 80048; 83735; 84484; 85025; 85610; 85730; 90686; 90732; 93005; 93010; 93017; 93306; 93320; 93325; 93350; J0461; J1250; J1650

== ENCOUNTER 2021-04-16 19:03 | Emergency (ER) | payer SELFPAY ==
--- NOTE | 2021-04-16 22:05 | Event Note ---
ED Screening Note Date of service: 04/16/21 Time: 22:02 ED Screening Note: Patient is a 56-year-old -[place] male with a history of morbid obesity, hypertension and remote history of CHF who presents to the ED with acute onset persistent nasal and sinus congestion, frontal sinus pressure, persistent dry cough with wheezing and shortness of breath, generalized weakness, fever and chills for the last 4 days. Patient states that no one else at home is had similar symptoms. Patient states that he has been taking [id number] medications with no relief and felt that his symptoms are getting worse especially in the last 6 hours. Patient denies dizziness, syncope, nausea and vomiting, diarrhea, abdominal pain, chest pain or dysuria, urinary frequency and urgency, sore throat or hematemesis. This initial assessment/diagnostic orders/clinical plan/treatment(s) is/are subject to change based on patients health status, clinical progression and re- assessment by fellow clinical providers in the ED. Further treatment and workup at subsequent clinical providers discretion. Patient/guardian urged not to elope from the ED as their condition may be serious if not clinically assessed and managed. Initial orders include: CBC, CMP, chest x-ray
[2021-04-16] MEDS: predniSONE 20 MG TAB PO ONE (22:26)
[2021-04-16] MEDS: ONDANSETRON 4 MG ODT TAB PO ONE (22:26)
[2021-04-16] MEDS: ACETAMINOPHEN 500 MG TAB PO ONE (22:27)
--- NOTE | 2021-04-16 22:32 | XRay Report ---
CHEST 2 VIEWS INDICATION / CLINICAL INFORMATION: cough. COMPARISON: None available. FINDINGS: SUPPORT DEVICES: None. HEART / MEDIASTINUM: No significant abnormality. LUNGS / PLEURA: No significant pulmonary or pleural abnormality. No pneumothorax. ADDITIONAL FINDINGS: No significant additional findings. IMPRESSION: 1. No acute findings. Signer Name: Greg Dominguez MD Signed: 04/16/2021 10:28 PM Workstation Name: [id number]
[2021-04-16 23:15] LABS: Hematocrit 44.7 % (35.5-45.6); Hemoglobin 14.7 gm/dl (11.8-15.2); Lymphocytes # (Auto) 0.9 K/mm3 (1.2-5.4); Lymphocytes % (Auto) 22.5 % (13.4-35.0); Mean Corpuscular HGB Conc 33 % (32-34); Mean Corpuscular Volume 84 fl (84-94); Monocytes # (Auto) 0.7 K/mm3 (0.0-0.8); Monocytes % (Auto) 15.9 % (0.0-7.3); Platelet Count 187 K/mm3 (140-440); Red Blood Count 5.33 M/mm3 (3.65-5.03); Red Cell Distribution Width 14.6 % (13.2-15.2)
[2021-04-16 23:36] LABS: Albumin 4.1 g/dL (3.9-5); Calcium 8.7 mg/dL (8.4-10.2)
[2021-04-17 03:08] VITALS: BP 166/89
--- NOTE | 2021-04-17 03:13 | Emergency Department Report ---
ED General Adult HPI - General Chief complaint: Weakness Stated complaint: WEAKNESS Source: patient Mode of arrival: Ambulatory Limitations: No Limitations - History of Present Illness Initial comments: Patient is a 56-year-old F [place] male with past medical history of hyperte nsion who is presenting with Covid-like symptoms. Patient states he currently is just having off-and-on fevers body aches and some generalized weakness. States has been sick for approximately 4 to 5 days. States initially had a cough mild shortness of breath and diarrhea but these symptoms are starting to subside. Patient states the body aches are 5 out of 10 in severity Severity scale (0 -10): 8 - Related Data Home Medications Medication Instructions Recorded Confirmed Last Taken Hydralazine HCl [Apresoline TAB] 50 mg PO BID 04/15/17 04/15/17 04/14/17 Metoprolol [Lopressor TAB] 50 mg PO BID 04/15/17 04/15/17 04/14/17 cloNIDine [Catapres] 0.2 mg PO TID 04/15/17 04/15/17 04/14/17 hydroCHLOROthiazide [HCTZ] 25 mg PO QDAY 04/15/17 04/15/17 04/14/17 Previous Rx's Medication Instructions Recorded Last Taken Type NIFEdipine XL [Procardia Xl] 30 mg PO QDAY 30 Days tablet 04/16/17 Unknown Rx HYDROcodone/APAP 5-325 [[place] 1 each PO Q6HR PRN #14 tablet 04/17/21 Unknown Rx 5/325] predniSONE [Deltasone] 50 mg PO QDAY #5 tab 04/17/21 Unknown Rx Allergies Allergy/AdvReac Type Severity Reaction Status Date / Time No Known Allergies Allergy Verified 04/16/21 21:47 ED Review of Systems ROS: Stated complaint: WEAKNESS Other details as noted in HPI Comment: All other systems reviewed and negative ED Past Medical Hx - Past Medical History Hx Hypertension: Yes Hx Congestive Heart Failure: No Hx Renal Disease: Yes ([place]) Hx HIV: No - Social History Smoking Status: Never Smoker - Medications Home Medications: Home Medications Medication Instructions Recorded Confirmed Last Taken Type Hydralazine HCl [Apresoline TAB] 50 mg PO BID 04/15/17 04/15/17 04/14/17 History Metoprolol [Lopressor TAB] 50 mg PO BID 04/15/17 04/15/17 04/14/17 History cloNIDine [Catapres] 0.2 mg PO TID 04/15/17 04/15/17 04/14/17 History hydroCHLOROthiazide [HCTZ] 25 mg PO QDAY 04/15/17 04/15/17 04/14/17 History NIFEdipine XL [Procardia Xl] 30 mg PO QDAY 30 Days tablet 04/16/17 Unknown Rx HYDROcodone/APAP 5-325 [[place] 1 each PO Q6HR PRN #14 tablet 04/17/21 Unknown Rx 5/325] predniSONE [Deltasone] 50 mg PO QDAY #5 tab 04/17/21 Unknown Rx ED Physical Exam - General Limitations: No Limitations General appearance: alert, in no apparent distress - Head Head exam: Present: atraumatic, normocephalic - Eye Eye exam: Present: normal appearance - ENT ENT exam: Present: mucous membranes moist - Neck Neck exam: Present: normal inspection - Respiratory Respiratory exam: Present: normal lung sounds bilaterally. Absent: respiratory distress, wheezes, rales, rhonchi - Cardiovascular Cardiovascular Exam: Present: regular rate, normal rhythm, normal heart sounds. Absent: systolic murmur, diastolic murmur, rubs, gallop - GI/Abdominal GI/Abdominal exam: Present: soft, normal bowel sounds. Absent: distended, tenderness, guarding, rebound - Rectal Rectal exam: Present: deferred - Extremities Exam Extremities exam: Present: normal inspection - Back Exam Back exam: Present: normal inspection - Neurological Exam Neurological exam: Present: alert, oriented X3 - Psychiatric Psychiatric exam: Present: normal affect, normal mood - Skin Skin exam: Present: warm, dry, intact, normal color. Absent: rash ED Course Vital Signs 04/16/21 04/16/21 04/17/21 21:48 21:49 00:10 Temperature 103 F H 100.3 F H Pulse Rate 82 87 Respiratory 19 Rate Blood Pressure 147/79 173/102 O2 Sat by Pulse 96 95 Oximetry 04/17/21 04/17/21 02:45 03:00 Temperature Pulse Rate 56 L 72 Respiratory 23 19 Rate Blood Pressure 166/89 O2 Sat by Pulse 97 90 Oximetry ED Medical Decision Making - Lab Data Result diagrams: 04/16/21 22:39 04/16/21 22:39 Lab Results 04/16/21 04/16/21 04/16/21 Range/Units 22:39 22:39 22:39 WBC 4.2 L (4.5-11.0) K/mm3 RBC 5.33 H (3.65-5.03) M/mm3 Hgb 14.7 (11.8-15.2) gm/dl Hct 44.7 (35.5-45.6) % MCV 84 (84-94) fl MCH 28 (28-32) pg MCHC 33 (32-34) % RDW 14.6 (13.2-15.2) % Plt Count 187 (140-440) K/mm3 Lymph % (Auto) 22.5 (13.4-35.0) % [place] % (Auto) 15.9 H (0.0-7.3) % Eos % (Auto) 0.0 (0.0-4.3) % Baso % (Auto) 1.0 (0.0-1.8) % Lymph # (Auto) 0.9 L (1.2-5.4) K/mm3 [place] # (Auto) 0.7 (0.0-0.8) K/mm3 Eos # (Auto) 0.0 (0.0-0.4) K/mm3 Baso # (Auto) 0.0 (0.0-0.1) K/mm3 Seg Neutrophils % 60.6 (40.0-70.0) % Seg Neutrophils # 2.5 (1.8-7.7) K/mm3 Sodium 135 L (137-145) mmol/L Potassium 3.7 (3.6-5.0) mmol/L Chloride 96.6 L (98-107) mmol/L Carbon Dioxide 26 (22-30) mmol/L Anion Gap 16 mmol/L BUN 24 H (9-20) mg/dL Creatinine 2.5 H (0.8-1.3) mg/dL Estimated GFR 33 ml/min BUN/Creatinine Ratio 10 % Glucose 114 H (75-100) mg/dL Calcium 8.7 (8.4-10.2) mg/dL Total Bilirubin 0.50 (0.1-1.2) mg/dL AST 24 (5-40) units/L ALT 14 (7-56) units/L Alkaline Phosphatase 48 (35-129) units/L Troponin T < 0.010 (0.00-0.029) ng/mL NT-Pro-B Natriuret Pep 322.8 (0-900) pg/mL Total Protein 7.8 (6.3-8.2) g/dL Albumin 4.1 (3.9-5) g/dL Albumin/Globulin Ratio 1.1 % - Radiology Data [facility] [address] [place] [address] XRay Report Signed Patient: JADA BRUNER III MR#: [id number] : 1965 Acct:[id number] Age/Sex: 56 / M ADM Date: 04/16/21 Loc: ED Attending Dr: Ordering Physician: LYNDSEY PEREZ Date of Service: 04/16/21 Procedure(s): XR chest routine 2V Accession Number(s): [id number] cc: LYNDSEY PEREZ Fluoro Time In Minutes: CHEST 2 VIEWS INDICATION / CLINICAL INFORMATION: cough. COMPARISON: None available. FINDINGS: SUPPORT DEVICES: None. HEART / MEDIASTINUM: No significant abnormality. LUNGS / PLEURA: No significant pulmonary or pleural abnormality. No pneumothorax. ADDITIONAL FINDINGS: No significant additional findings. IMPRESSION: 1. No acute findings. Signer Name: Greg Dominguez MD Signed: 04/16/2021 10:28 PM Workstation Name: [id number] - Medical Decision Making Patient likely with Covid infection. Patient does not have pneumonia with O2 sats in the upper 90s and the lungs are clear. Patient is good candidate for outpatient therapy. Patient be given medication for symptomatic relief and discharged home. Critical care attestation.: If time is entered above; I have spent that time in minutes in the direct care of this critically ill patient, excluding procedure time. ED Disposition Clinical Impression: Suspected COVID-19 virus infection Disposition: 01 HOME / SELF CARE / HOMELESS Is pt being admited?: No Does the pt Need Aspirin: No Condition: Stable Instructions: COVID-19 Frequently Asked Questions, COVID-19: How to Protect Yourself and Others - CDC, Prevent the Spread of COVID-19 if You Are Sick - CDC Additional Instructions: Unfortunately we do not have a rapid test to formally tested for Covid. Please go to any urgent care or Covid testing sites for official testing results Time of Disposition: 03:12
== END 2021-04-17 05:56 | disposition home or self-care (01) ==
LOC: ED 19:03
DX: R53.1 Weakness (principal); Z20.822 Contact with and (suspected) exposure to COVID-19; I10 Essential (primary) hypertension; Z79.899 Other long term (current) drug therapy
CPT/HCPCS: 36415; 71046; 80053; 83880; 84484; 85025; 99283; J7512; Q0162